=== PATIENT | male | born 1965 | race Caucasian/White ===

== ENCOUNTER → 2021-02-18 | Outpatient (CLI) | payer MEDICARE, OTHER ==
[~2021-02-18] MED LIST: IBUPROFEN600 MG PO; NEOSPORIN OINT30 GM EXT; OMNICEF 300 MG300 MG PO
== END ==
LOC: RAD 07:14
DX: R05 Cough (principal); R91.8 Other nonspecific abnormal finding of lung field
CPT/HCPCS: 71046

== ENCOUNTER → 2021-09-04 | Outpatient (CLI) | payer MEDICARE ==
[~2021-09-04] MED LIST changes: +CELEXA20 MG PO; +CYCLOBENZAPRINE10 MG PO; +LIPITOR TAB 1010 MG PO; +VITAMIN D21250 MCG PO; +ZETIA10 MG PO
[2021-09-04 12:26] LABS: HEMOGLOBIN 14.2 gm/dl (14.0-17.5); RED BLOOD COUNT 4.28 M/UL (4.20-5.50); WHITE BLOOD COUNT 9.3 K/UL (4.5-11.0)
[2021-09-04 12:39] LABS: BUN/CREATININE RATIO 29 (0-10)
== END ==
LOC: OPSV2 10:55 → EDSTATUS 11:00 → OPSV2 11:00
PROVIDERS: Orthopaedic Surgery
DX: Z01.812 Encounter for preprocedural laboratory examination (principal); M17.12 Unilateral primary osteoarthritis, left knee
CPT/HCPCS: 36415; 80048; 85025; 93005

== ENCOUNTER → 2021-09-14 | Outpatient (CLI) | payer MEDICARE ==
[~2021-09-14] MED LIST changes: +HYDROCODON-ACE1 EAC6 PO; +PHENERGAN 25 MG25 M1 PO; +ZOFRAN4 MG PO
[2021-09-14 13:23] LABS: BUN/CREATININE RATIO 26 (0-10)
== END ==
LOC: LAB 12:12
PROVIDERS: Orthopaedic Surgery
DX: Z01.812 Encounter for preprocedural laboratory examination (principal)
CPT/HCPCS: 36415; 80048; 86850; 86900; 86901

== ENCOUNTER 2021-09-15 05:59 | Day surgery (SDC) | payer MEDICARE ==
[~2021-09-15] VITALS: Ht 172.7 cm; Wt 77.1 kg
[~2021-09-15 05:59] MED LIST changes: -HYDROCODON-ACE1 EAC6 PO; -PHENERGAN 25 MG25 M1 PO; -ZOFRAN4 MG PO
[2021-09-15] MEDS ORDERED: PHENERGAN 25 MG25 M1 PO (17:51)
[2021-09-15] MEDS ORDERED: ZOFRAN4 MG PO (17:51)
[2021-09-15] MEDS ORDERED: HYDROCODON-ACE1 EAC6 PO (18:39)
== END 2021-09-15 18:26 | disposition home or self-care (01) ==
LOC: OR 05:59 → EDSTATUS 09:15 → OR 09:15 → M/S 13:11 → OR 18:26
PROVIDERS: Orthopaedic Surgery
PROC: 0SRD0J9 Replacement of Left Knee Joint with Synthetic Substitute, Cemented, Open Approach (ICD-10-PCS; principal; 2021-09-15 09:15)
PROC: 3E0T3BZ Introduction of Anesthetic Agent into Peripheral Nerves and Plexi, Percutaneous Approach (ICD-10-PCS; principal; 2021-09-15 09:15)
DX: M17.12 Unilateral primary osteoarthritis, left knee (principal); E78.5 Hyperlipidemia, unspecified; K21.9 Gastro-esophageal reflux disease without esophagitis; Z20.822 Contact with and (suspected) exposure to COVID-19; Z88.1 Allergy status to other antibiotic agents; Z88.5 Allergy status to narcotic agent; Z79.899 Other long term (current) drug therapy; Z87.891 Personal history of nicotine dependence
CPT/HCPCS: 73560; 76000; 97161; 97166; C1776; J0360; J0690; J1170; J1885; J2250; J2405; J2704; J2795; J3010; J7120

== ENCOUNTER → 2022-02-05 | Outpatient (CLI) | payer MEDICARE ==
[~2022-02-05] MED LIST changes: +HYDROCODON-ACE1 EAC6 PO; +PHENERGAN 25 MG25 M1 PO; +ZOFRAN4 MG PO
== END ==
LOC: KOH-I 10:37
DX: J20.9 Acute bronchitis, unspecified (principal)
CPT/HCPCS: 71046